=== PATIENT | female | born 1955 | race Caucasian/White ===

== ENCOUNTER 2017-11-14 06:36 | Inpatient (IN) ==
--- NOTE | 2017-11-13 22:29 | Discharge Summary ---
<CateMini E - Last Filed: 11/14/17 08:30> Date of Encounter: 11/14/17 - Discharge Diagnosis (1) Arthritis of right knee Priority: Primary Status: Chronic (2) HTN (hypertension) Priority: Secondary Status: Chronic Qualifiers: Hypertension type: unspecified Qualified Code(s): I10 - Essential (primary ) hypertension (3) Obesity Priority: Secondary Status: Chronic Qualifiers: Obesity type: unspecified obesity type Obesity classification: unspecified obesity classification Serious obesity comorbidity presence: unspecified whether serious comorbidity present Qualified Code(s): E66.9 - Obesity, unspecified (4) Neuropathy Priority: Secondary Status: Chronic (5) Muscle spasm Priority: Secondary Status: Chronic (6) Status post total right knee replacement Priority: Primary Status: Acute - Hospital Course Hospital course: Ms. Gonzáles is a 61 year old female - Time Spent with Patient Total time spent providing and/or coordinating discharge services: - Discharge Medications Home Medications: Aspirin Enteric Coated [Aspirin EC] 325 mg PO BID 10 Days #20 tablet. [Rx] Cyclobenzaprine [Flexeril] 5 mg PO BID PRN 11/14/17 [History] Gabapentin [Neurontin] 300 mg PO TID 11/14/17 [History] Lisinopril [Zestril] 10 mg PO DAILY 11/14/17 [History] Meloxicam 15 mg PO DAILY 11/14/17 [History] Oxycodone HCl 5 mg PO Q6H PRN 7 Days #28 tablet 11/14/17 [Rx] Vit A/Vit C/Vit E/Zinc/Copper [Preservision Areds Tablet] 1 tab PO DAILY [History] Allergies/Adverse Reactions: 3 Allergy/AdvReac Type Severity Reaction Status Date / Time aspirin Allergy Vomiting Verified 11/14/17 07:10 codeine Allergy Irritable Verified 11/14/17 07:10 Primary care physician: Agustin Partida MD - Patient Status Disposition: Home Health Service Condition: Good - Discharge Instructions Follow Up With: Agustin Partida MD [Primary Care Provider] - <Earle Pickens - Last Filed: 11/15/17 06:39> Orders not resulted at time of discharge: Pending orders 11/14/17 01:00 XR knee RT limited 1-2V [XR] Routine Hemoglobin and Hematocrit [HEME] Routine Date of Encounter: 11/15/17 Time of Encounter: 06:38 - Discharge Diagnosis (1) Obesity (BMI 35.0-39.9 without comorbidity) Priority: Secondary Status: Chronic (2) Arthritis of right knee Priority: Primary Status: Chronic (3) HTN (hypertension) Priority: Secondary Status: Chronic Qualifiers: Hypertension type: unspecified Qualified Code(s): I10 - Essential (primary ) hypertension (4) Neuropathy Priority: Secondary Status: Chronic (5) Status post total right knee replacement Priority: Primary Status: Acute - Hospital Course Hospital course: Ms. Gonzáles is a 61 year old female Status post right total knee replacement The patient had an uneventful postoperative course. They received antibiotics and physical therapy and were discharged in stable condition. There will follow -up in the office in 2 weeks. - Time Spent with Patient Total time spent providing and/or coordinating discharge services: Primary care physician: Agustin Partida MD - Patient Status Functional capacity at discharge: uses cane/walker Overall status at discharge: patient is progressing back to baseline
--- NOTE | 2017-11-14 06:47 | History & Physical Report ---
Date of Encounter: 11/14/17 Time of Encounter: 06:46 24 Hour HP Update - Instructions Instructions: If the History and Physical is less than 30 days old and was completed prior to A.M. admission and or procedure and has NOT been updated on calendar day of procedure please complete this update prior to performing procedure. - Update Patient reports changes in Medical Condition: No Changes in examination, assessment, or condition: No Changes in Medication: No Preop tests/diagnostics Reviewed: Yes Surgery Remains Indicated: Yes Consent for Planned Operative Procedure(s) Verified: Yes - Pre-Operative Checklist Preoperative Checklist Indicated: No Prophylactic Antibiotic Ordered: Yes Is VTE Prophylaxis Indicated?: Yes
[2017-11-14] MEDS ORDERED: *HR* FentaNYL (PF) 100 MCG/2 ML VIAL ONE ×2 (06:59→09:17)
[2017-11-14] MEDS ORDERED: Ondansetron 4 MG/2 ML VIAL ONE (06:59)
[2017-11-14] MEDS ORDERED: Lidocaine -MPF 2% 2 ML VIAL ONE (06:59)
[2017-11-14] MEDS ORDERED: *HR* Midazolam HCl 2 MG/2 ML VIAL ONE (06:59)
[2017-11-14] MEDS ORDERED: Dexamethasone 4 MG/ML VIAL ONE (06:59)
[2017-11-14] MEDS ORDERED: *HR* Propofol 200 MG/20 ML VIAL IVP ONE (06:59)
[2017-11-14] MEDS ORDERED: Ethanol\\Acetic Acid\\Na Ace\\Ben 1,000 ML IRRIG.SOLN IR ONE (07:13)
--- NOTE | 2017-11-14 07:24 | Anesthesia Evaluation PreOp ---
Date of Encounter: 11/14/17 Time of Encounter: 07:21 - Past History Planned Operation: Right Total Knee Arthroplasty Cardiac History: HTN Pulmonary History: Denies Any Significant HX SANITATION ENGINEER History: Denies Any Significant HX Other Medical History: Denies Any Significant HX Anesthesia History: No Prior Anesthetic Complications, Past Anesthesia Alcohol Use: none Drug use: none Medications and Allergies Cyclobenzaprine [Flexeril] 5 mg PO BID PRN 11/14/17 [History] Gabapentin [Neurontin] 300 mg PO TID 11/14/17 [History] Lisinopril [Zestril] 10 mg PO DAILY 11/14/17 [History] Meloxicam [Meloxicam] 15 mg PO DAILY 11/14/17 [History] Vit A/Vit C/Vit E/Zinc/Copper [Preservision Areds Tablet] 1 tab PO DAILY [History] 3 Allergy/AdvReac Type Severity Reaction Status Date / Time aspirin Allergy Vomiting Verified 11/14/17 07:10 codeine Allergy Irritable Verified 11/14/17 07:10 - Meds/Allergy Pre-op Review Medications Reviewed: Yes Allergies Reviewed: Yes Beta Blockers on Current Med List: No Anesthesia Results - Labs Laboratory Tests 11/10/17 11/10/17 11/10/17 14:41 14:41 14:41 WBC 7.5 Hgb 12.8 Hct 40.3 Plt Count 298 PT 10.8 INR 1.0 APTT 29.6 Sodium 140 Potassium 4.2 BUN 17 Creatinine 0.77 Anesthesia Exam O2 Sat Height 1.55 m Height 1.55 m Weight 88.904 kg Weight 88.904 kg O2 Sat by Pulse Oximetry 96 Vital Signs Temp Pulse Resp BP Pulse Ox 98.0 F 91 18 108/67 96 11/14/17 06:57 11/14/17 06:57 11/14/17 06:57 11/14/17 06:57 11/14/17 06:57 Height: 5'1'' Weight: 196 lbs NPO (# of Hours): 8 Pain Scale: 3 (right knee) Pain Scale Used: Numeric (1 - 10) - HEENT Pupil (Motor): EOMI Mallampati: II Teeth: Edentulous Denture Type: Upper: Complete, Lower: Complete Oral Opening: Greater than 3 - SANITATION ENGINEER LOC: Oriented SANITATION ENGINEER Motor: Normal RUE, Normal LUE, Normal RLE, Normal LLE, Normal Face SANITATION ENGINEER Sensory: Normal: RUE, LUE, RLE, LLE, Face - Cardiac Rhythm: Regular Murmur: None - Pulmonary Breath Sounds: bilateral Clear Respiratory Effort: Symmetrical Anesthesia Assess/Plan ASA Score: 2 Modified Reji Scale for Level of Consciousness: Cooperative, oriented, and tranquil Anesthetic Plan: General, Regional Monitoring Plan: Standard Monitors Recovery Plan: PACU
[2017-11-14] MEDS ORDERED: Propofol 500 MG/50 ML INFUS..BTL ONE (07:26)
[2017-11-14] MEDS ORDERED: Bupivacaine/Clonidine Syringe 1 EACH SYRINGE ONE ×2 (07:31→08:28)
[2017-11-14] MEDS ORDERED: CeFAZolin Syr 2,000MG/20 ML 2,000 MG/20 ML SYRINGE IVPB ONE (07:53)
[2017-11-14] MEDS ORDERED: Ringers Solution, Lactated 1,000 ML IVC SCH ×2 (08:00→08:45)
[2017-11-14] MEDS ORDERED: *HR* OxyCODONE Immed Rel 5 MG TABLET PO PRN ×2 (08:37→11:37)
[2017-11-14] MEDS ORDERED: *HR* Meperidine 25 MG/ML SYRINGE IVP PRN (08:37)
[2017-11-14] MEDS ORDERED: *HR* HYDROmorphone 2 MG TABLET PO PRN (08:37)
[2017-11-14] MEDS ORDERED: Naloxone 0.4 MG/ML INJ IVP PRN ×2 (08:37→11:37)
[2017-11-14] MEDS ORDERED: *HR* Promethazine 25 MG/ML VIAL IVP PRN (08:37)
[2017-11-14] MEDS ORDERED: Ondansetron 4 MG/2 ML VIAL IVP ONE (08:37)
[2017-11-14] MEDS ORDERED: Albuterol 2.5 MG/3 ML NEBULIZER IH ONE (08:37)
--- NOTE | 2017-11-14 08:37 | Anesthesia Procedures ---
Date of Encounter: 11/14/17 Time of Encounter: 08:35 Procedures: Anesthesia - Nerve Block Procedure Date: 11/14/17 Time: 08:35 Surgical Procedure: right tka Checklist: Correct Patient Identifier, Correct procedure, History checked Correct side: Right Blood Thinner: No Monitor Applied: EKG, BP, Pulse Oximetry Supplemental Oxygen via Nasal Cannula (L/min): 2 Sedation: Versed (mg): 2 Sedation: Fentanyl (mcg): 100 Indication: Post Op Analgesia (request per dr howard for post op pain control) Pre-op Neuro Deficits: No Block Type: Other (adductor canal & ipack) Catheter placed: No Sterile Technique: Yes Ultrasound used: Yes Anatomy identified: Yes Visual spread of Local: Yes Neuro Stimulation: No Blood on Needle Aspiration: No Smooth Injection of Local: Yes Pain with Injection of Local: No Prep: Chlorhexadine Needle: 22 x 50 mm Stimuplex (add canal), 21 x 100 mm Stimuplex (ipack) Local: 0.25% Bupivicaine w/Clonidine 20 mcg/cc Volume (cc): 60 Number of Attempts: 1 Complications: None/effective block Vitals: Vital Signs/O2 Sat/Glucose, Most Current Temp Pulse Resp BP Pulse Ox 11/14/17 08:17 85 128/75 100 11/14/17 07:47 98.0 F 91 18 108/67 96 11/14/17 06:57 98.0 F 91 18 108/67 96 Comments: pt tolerated procedure well. no complications. vss.
[2017-11-14] MEDS ORDERED: *HR* PHENYLEPHRINE 1,000 MCG/10 ML SYRINGE IVP ONE (09:06)
--- NOTE | 2017-11-14 10:00 | Orthopedic Operative Note ---
Date of procedure: 11/14/17 Pre-op diagnosis: Right knee arthritis Post-op diagnosis: same Procedure: Procedure: Right robotic-assisted Total knee replacement Estimated blood loss: 200 cc Hardware: Metal and polyethylene replacement. [place] Femur: 2 Tibia: 3 TS insert: 9 Patella: 36 Exam Under anesthesia: 14 degree flexion contracture 9 degrees varus as calculated by the robot full flexion and no instability Procedural Notes: Grade 4 arthritic changes all 3 compartments. Operative procedure: The patient was brought to the operating room and placed on the operating room table. After general anesthesia was administered the operative knee was examined. Findings were noted in the exam under anesthesia. The operative extremity was prepped and draped in sterile surgical fashion. The patient received IV antibiotics prior to skin incision. A standard midline incision was made centered over the patella. The incision was made through the skin and subcutaneous tissue. A medial parapatellar tendon approach was performed. Care was taken to preserve tissue along the medial aspect of the patella. And to protect the patella tendon. The deep MCL was released off the medial tibia. The infra patella fat pad was excised. The patella was everted and cut was made at the level of the insertion of the quadriceps and patella tendon. The patella was sized the guide was seated and the lug holes are drilled. Knee was brought into flexion. Patient noted to have grade 4 arthritic changes all 3 compartments. Steinmann pins were placed in the tibia and the femur for the tibial and femoral arrays respectively. Checkpoints were also placed in the tibia and the femur for calculation purposes. The knee including the femur and the tibial registered. Osteophytes, ACL and PCL were excised at this point. Extension and flexion were assessed with a valgus stress components were adjusted on the computer to balance the knee. Femoral cuts were made first with robotic assistance, these included the anterior cut posterior cuts chamfer cuts. Tibial cut was then performed with robotic assistance as well. Bone fragments were removed, as well as the medial and lateral meniscus. The size 2 femoral guide was seated box cut was made lug holes are drilled. The size 3 tibial tray was seated and prepared with the fin cutter. Trial reduction with the 9 TS Veronica revealed extension of 0 degree and 60 degrees varus full flexion. No varus valgus instability. Trial reduction revealed excellent patella tracking. All trial components were removed all bony surfaces were irrigated. The Tibia was seated followed by the femur, The Veronica size 9 was seated and secured patella. Patient had similar findings for motion and stability. The knee was closed by the PA. The knee was then irrigated out with 2 L of pulse irrigation. The extensor mechanism was closed with #2 FiberWire suture and #2 PDS suture. The subcutaneous tissue was then irrigated and closed deep with #1 PDS suture superficially with 0 PDS suture and skin was closed with zip tie The patient was then placed in a sterile dressing and a postoperative brace extubated and transferred to recovery room in stable condition. Anesthesia: GETA Surgeon: Earle Pickens Was there an assistant head cashier present: Yes Supervisor Ticket Sales: Mini Esposito Estimated blood loss (cc): 200 Condition: stable Disposition: PACU
[2017-11-14] MEDS: MORPHINE SUL Oral CONC 10 MG/0.5 ML ORAL.SYG SL PRN ×2 (10:57→11:12)
[2017-11-14] MEDS ORDERED: Ketorolac 30 MG/ML VIAL IVP ONE (11:02)
[2017-11-14] MEDS ORDERED: Acetaminophen IV 1,000 MG/100 ML INFUS..BTL IVPB ONE (11:03)
[2017-11-14] MEDS ORDERED: Acetaminophen IV 1,000 MG/100 ML INFUS..BTL ONE (11:06)
[2017-11-14 11:25] LABS: Hematocrit 42.7 % (35.3-44.9); Hemoglobin 13.8 g/dL (11.5-15.4)
--- NOTE | 2017-11-14 11:26 | Anesthesia Evaluation Post Op ---
Date of Encounter: 11/14/17 Time of Encounter: 11:25 - Vital Signs Vital Signs: Vital Signs/O2 Sat, Most Current Temp Pulse Resp BP Pulse Ox 98.4 F 87 14 154/88 95 11/14/17 11:07 11/14/17 11:17 11/14/17 11:17 11/14/17 11:17 11/14/17 11:17 - Lungs Lungs: Clear Ascult./Percussion - Airway Airway: Non-obstructed - Cardiovascular Regular Rate - Mental Status Mental Status: Alert & Oriented, Answers Appropriately - Pain Pain Scale: 5 Pain Scale used: Numeric (1 - 10) - Nausea Vomiting Nausea Vomiting: Not Present - Hydration Hydration: Ice chips, Has not voided - Discharge PostOp Status: Transfer Patient to floor
[2017-11-14] MEDS ORDERED: Temazepam 15 MG CAPSULE PO PRN (11:37)
[2017-11-14] MEDS ORDERED: traMADol 50 MG TABLET PO PRN (11:37)
[2017-11-14] MEDS ORDERED: MOM Conc 10 ML UD.LIQ PO PRN (11:37)
[2017-11-14] MEDS ORDERED: Sennosides 8.6 MG TABLET PO PRN (11:37)
[2017-11-14] MEDS ORDERED: Ondansetron 4 MG/2 ML VIAL IVP PRN (11:37)
[2017-11-14] MEDS: Gabapentin 300 MG CAPSULE PO SCH ×2 (15:50→21:03)
--- NOTE | 2017-11-14 15:50 | Physician Discharge Referral ---
Home Health/Hosp Referral Info Transfer to: Home Health Attending Provider: Dr. Earle Pickens - Diagnosis (1) Status post total right knee replacement Priority: Primary Status: Acute (2) Arthritis of right knee Priority: Primary Status: Chronic (3) HTN (hypertension) Priority: Secondary Status: Chronic (4) Obesity Priority: Secondary Status: Chronic (5) Neuropathy Priority: Secondary Status: Chronic (6) Muscle spasm Priority: Secondary Status: Chronic - Respiratory Orders Smoking Cessation: Smoking cessation has been advised. For more information, call the [place] Tobacco Quit Line at 4-052-CVLD-NOW. - Dressing/Wound Care Site: right knee Type of Dressing/Treatments w/Frequency: Opsite placed. Keep dressing intact until first follow up appointment. If > 50% saturated, notify office, remove dressing and place appropriate dressing back in place. Leave Zipline intact. Opsite dressing is water resistant, not water- proof. OK to shower, but do not get dressing wet. - Diet/Nutrition Diet/Nutrition Orders: Regular - Activity Activity Orders: Up ad katia, Ambulate, Chair, Walker - Services Needed Following services are medically necessary services: Nursing, Home Health Aide, Physical Therapy, Occupational Therapy Home Care Orders: Total Knee replacement Precautions x 6 weeks Apply cold therapy wrap 3-6x/day for 20 minutes at a time. Encourage ambulation throughout the day and incentive spirometer 10x/hour. Elevate affected extremity above heart as tolerated. Brace: Wear knee immobilizer at night x 2 weeks. - Transfer Medications Home Medications: Aspirin Enteric Coated [Aspirin EC] 325 mg PO BID 10 Days #20 tablet. [Rx] Cyclobenzaprine [Flexeril] 5 mg PO BID PRN 11/14/17 [History] Gabapentin [Neurontin] 300 mg PO TID 11/14/17 [History] Lisinopril [Zestril] 10 mg PO DAILY 11/14/17 [History] Meloxicam 15 mg PO DAILY 11/14/17 [History] Oxycodone HCl 5 mg PO Q6H PRN 7 Days #28 tablet 11/14/17 [Rx] Vit A/Vit C/Vit E/Zinc/Copper [Preservision Areds Tablet] 1 tab PO DAILY [History] Allergies/Adverse Reactions: 3 Allergy/AdvReac Type Severity Reaction Status Date / Time aspirin Allergy Vomiting Verified 11/14/17 07:10 codeine Allergy Irritable Verified 11/14/17 07:10 Certification: Further, I certify that my clinical findings support that this patient is homebound (i.e. absences from home require considerable and taxing effort and are for medical reasons or bahai services or infrequently or short duration when for other reasons) because: Homebound Reason: Post-surgery restriction and or conditions limit ability to leave home Attestation: My signature below is to certify that this patient is under my care and that I, or nurse practitioner, or a physician city carrier assistant working with me, has a face-to- face encounter with this patient.
[2017-11-14] MEDS: ceFAZolin 2,000 MG in 0.9 % Sodium Chloride 100 ML IVPB SCH (17:19)
[2017-11-14] MEDS: *HR* Enoxaparin 30 MG/0.3 ML SYRINGE SQ SCH (17:20)
[2017-11-14] MEDS ORDERED: *HR* Enoxaparin 30 MG/0.3 ML SYRINGE SQ SCH (18:00)
[2017-11-14] MEDS: *HR* OxyCODONE/APAP 5/325 TABLET PO PRN (21:05)
[2017-11-15] MEDS: ceFAZolin 2,000 MG in 0.9 % Sodium Chloride 100 ML IVPB SCH (00:06)
[2017-11-15 01:41] LABS: BUN/Creatinine Ratio 21 (6-26); Blood Urea Nitrogen 16 mg/dL (8-23); Calcium 8.8 mg/dL (8.6-10.3); Carbon Dioxide 24 mEq/L (23-29); Chloride 107 mEq/L (98-107); Glucose 112 mg/dL (70-105); Osmolality,Calculated 286 (280-300); Potassium 4.6 mEq/L (3.5-5.1); Sodium 137 mEq/L (136-145); eGFR For African Americans > 60 (> 60); eGFR For Non-African Americans > 60 (> 60)
[2017-11-15 02:01] LABS: Hemoglobin 11.3 g/dL (11.5-15.4)
[2017-11-15] MEDS: *HR* Enoxaparin 30 MG/0.3 ML SYRINGE SQ SCH ×2 (05:20→18:27)
[2017-11-15] MEDS: *HR* OxyCODONE/APAP 5/325 TABLET PO PRN ×3 (05:37→20:12)
--- NOTE | 2017-11-15 06:39 | Orthopedics Progress Note ---
Date of Encounter: 11/15/17 Time of Encounter: 06:39 - Assessment and Plan (1) Obesity (BMI 35.0-39.9 without comorbidity) Current Visit: Yes Status: Chronic (2) Arthritis of right knee Current Visit: No Status: Chronic (3) HTN (hypertension) Current Visit: No Status: Chronic Qualifiers: Hypertension type: unspecified Qualified Code(s): I10 - Essential (primary ) hypertension (4) Neuropathy Current Visit: No Status: Chronic (5) Status post total right knee replacement Current Visit: No Status: Acute Subjective Interval history: Patient was seen this morning doing well without complaints. Afebrile vital signs stable. Operative extremity: Neurovascularly intact Dressing clean dry and intact Calves nontender Assessment and plan: Continue with postoperative care Hematocrit 36 discharged today Objective Vital signs: Vital Signs Temp Pulse Resp BP Pulse Ox 11/15/17 05:28 84 100/63 11/15/17 04:38 97.5 F L 77 17 89/59 98 11/15/17 00:26 97.5 F L 81 17 98/63 98 11/14/17 19:05 97.7 F 81 17 95/62 98 11/14/17 13:35 97.7 F 91 16 99/62 95 11/14/17 12:40 97.9 F 78 16 95/67 96 11/14/17 12:10 97.7 F 87 18 127/84 95 11/14/17 11:40 97.6 F 82 18 139/82 96 11/14/17 11:27 98.6 F 90 14 150/83 96 11/14/17 11:17 87 14 154/88 95 11/14/17 11:07 98.4 F 93 19 142/94 96 11/14/17 10:57 95 16 155/87 98 11/14/17 10:47 85 16 149/83 97 11/14/17 10:37 97.6 F 102 16 141/85 100 11/14/17 08:30 84 109/69 100 11/14/17 08:17 85 128/75 100 11/14/17 07:47 98.0 F 91 18 108/67 96 11/14/17 06:57 98.0 F 91 18 108/67 96 Intake and Output 11/14/17 11/14/17 11/15/17 15:59 23:59 07:59 Intake Total 100 / 100 150 / 150 Output Total 200 / 200 300 / 300 920 / 920 Balance -200 / -200 -200 / -200 -770 / -770 Intake: IV Fluids 100 / 100 Ancef 2,000 MG In 0.9 % Sodium 100 / 100 Chloride 100 ML @ 200 mls/hr IVPB Q8HR BG Rx#:[id number] Oral 150 / 150 Output: Urine 300 / 300 920 / 920 Estimated Blood Loss 200 / 200 - Labs CBC & BMP: 11/15/17 00:50 11/15/17 00:50 Labs: Abnormal lab results Hgb 11.3 g/dL (11.5-15.4) L D 11/15/17 00:50 Glucose 112 mg/dL (70-105) H 11/15/17 00:50 - VTE Documentation of Mechanical Device: Venous foot pump, device Consult Discharge Plan - Plan Referrals: Agustin Partida MD [Primary Care Provider] -
[2017-11-15] MEDS: Gabapentin 300 MG CAPSULE PO SCH ×3 (08:39→20:12)
--- NOTE | 2017-11-15 12:22 | Event Note ---
Date of Encounter: 11/15/17 Time of Encounter: 11:20 PCR- POD#1 R TKR robotic 11/14/17 Celio PCR - Patient seen at bedside. Labwork and medications reviewed. Pain control: Adequate Participating in PT. All questions and concerns addressed. Educated on use of incentive spirometer, ambulation, and hydration. Patient educated on post-operative restrictions and care. Addressed: see above. D/C plan: Home with home health tomorrow.
[2017-11-16 00:58] LABS: Hematocrit 32.8 % (35.3-44.9); Hemoglobin 10.6 g/dL (11.5-15.4)
[2017-11-16 01:15] LABS: BUN/Creatinine Ratio 20 (6-26); Blood Urea Nitrogen 14 mg/dL (8-23); Calcium 8.7 mg/dL (8.6-10.3); Carbon Dioxide 24 mEq/L (23-29); Chloride 106 mEq/L (98-107); Glucose 118 mg/dL (70-105); Osmolality,Calculated 290 (280-300); Potassium 4.4 mEq/L (3.5-5.1); Sodium 139 mEq/L (136-145); eGFR For African Americans > 60 (> 60); eGFR For Non-African Americans > 60 (> 60)
[2017-11-16] MEDS ORDERED: Acetaminophen 325 MG TABLET PO PRN (03:50)
[2017-11-16] MEDS: *HR* OxyCODONE/APAP 5/325 TABLET PO PRN ×3 (03:59→17:56)
[2017-11-16] MEDS: *HR* Enoxaparin 30 MG/0.3 ML SYRINGE SQ SCH ×2 (06:08→17:56)
--- NOTE | 2017-11-16 06:40 | Orthopedics Progress Note ---
Date of Encounter: 11/16/17 Time of Encounter: 06:40 - Assessment and Plan (1) Obesity (BMI 35.0-39.9 without comorbidity) Current Visit: Yes Status: Chronic (2) Arthritis of right knee Current Visit: No Status: Chronic (3) HTN (hypertension) Current Visit: No Status: Chronic Qualifiers: Hypertension type: unspecified Qualified Code(s): I10 - Essential (primary ) hypertension (4) Neuropathy Current Visit: No Status: Chronic (5) Status post total right knee replacement Current Visit: No Status: Acute Subjective Interval history: Patient was seen this morning doing well without complaints. Afebrile vital signs stable. Operative extremity: Neurovascularly intact Dressing clean dry and intact Calves nontender Assessment and plan: Continue with postoperative care Hematocrit 32 patient wanting ECF will discharged today Objective Vital signs: Vital Signs Temp Pulse Resp BP Pulse Ox 11/16/17 06:11 98.9 F 100 16 128/76 96 11/16/17 02:42 98.9 F 100 18 147/68 95 11/15/17 23:56 98.9 F 97 16 114/68 94 11/15/17 18:53 99.8 F H 109 18 153/75 98 11/15/17 15:30 99.1 F 99 16 151/76 96 11/15/17 10:54 98.1 F 89 16 108/69 94 11/15/17 06:42 98.5 F 76 16 93/60 95 Intake and Output 11/15/17 11/15/17 11/16/17 15:59 23:59 07:59 Intake Total 480 / 480 440 / 440 0 / 0 Output Total 250 / 250 0 / 0 Balance 480 / 480 190 / 190 0 / 0 Intake: Oral 480 / 480 440 / 440 0 / 0 Output: Urine 250 / 250 0 / 0 Other: Meal Lunch Dinner Percent of Meal Consumed 30% 25% # Voids 1 1 - Labs CBC & BMP: 11/16/17 00:37 11/16/17 00:37 Labs: Abnormal lab results Hgb 10.6 g/dL (11.5-15.4) L 11/16/17 00:37 Hct 32.8 % (35.3-44.9) L 11/16/17 00:37 Glucose 118 mg/dL (70-105) H 11/16/17 00:37 - VTE Documentation of Mechanical Device: Venous foot pump, device Consult Discharge Plan - Plan Referrals: Agustin Partida MD [Primary Care Provider] -
[2017-11-16] MEDS: Gabapentin 300 MG CAPSULE PO SCH ×3 (08:25→20:50)
[2017-11-16] MEDS: Ringers Solution, Lactated 1,000 ML IVC SCH ×2 (08:26→17:56)
[2017-11-17] MEDS: *HR* Enoxaparin 30 MG/0.3 ML SYRINGE SQ SCH ×2 (05:51→16:49)
--- NOTE | 2017-11-17 06:21 | Orthopedics Progress Note ---
Date of Encounter: 11/17/17 Time of Encounter: 06:21 - Assessment and Plan (1) Obesity (BMI 35.0-39.9 without comorbidity) Current Visit: Yes Status: Chronic (2) Arthritis of right knee Current Visit: No Status: Chronic (3) HTN (hypertension) Current Visit: No Status: Chronic Qualifiers: Hypertension type: unspecified Qualified Code(s): I10 - Essential (primary ) hypertension (4) Neuropathy Current Visit: No Status: Chronic (5) Status post total right knee replacement Current Visit: No Status: Acute Subjective Interval history: Patient was seen this morning doing well without complaints. Afebrile vital signs stable. Operative extremity: Neurovascularly intact Dressing clean dry and intact Calves nontender Assessment and plan: Continue with postoperative care Discharge today Objective Vital signs: Vital Signs Temp Pulse Resp BP Pulse Ox 11/17/17 03:37 98.7 F 92 14 120/75 94 11/16/17 23:37 98.9 F 98 14 110/71 96 11/16/17 18:22 100.7 F H 117 14 138/79 97 11/16/17 16:06 98.2 F 106 18 128/78 99 11/16/17 11:29 98.6 F 102 18 119/72 97 11/16/17 08:11 138/80 Intake and Output 11/16/17 11/16/17 11/17/17 15:59 23:59 07:59 Intake Total 360 / 360 490 / 490 Output Total 550 / 550 Balance -190 / -190 490 / 490 Intake: Oral 360 / 360 490 / 490 Output: Urine 550 / 550 Other: Meal Lunch Dinner Percent of Meal Consumed 50% 80% # Voids 1 - Labs CBC & BMP: 11/16/17 00:37 11/16/17 00:37 Labs: Abnormal lab results Hgb 10.6 g/dL (11.5-15.4) L 11/16/17 00:37 Hct 32.8 % (35.3-44.9) L 11/16/17 00:37 Glucose 118 mg/dL (70-105) H 11/16/17 00:37 - VTE Documentation of Mechanical Device: Intermittent pneumatic compression device Consult Discharge Plan - Plan Referrals: Agustin Partida MD [Primary Care Provider] -
--- NOTE | 2017-11-17 08:42 | Event Note ---
Date of Encounter: 11/16/17 Time of Encounter: 11:30 PCR- POD#2 R TKR robotic 11/14/17 Celio PCR - Patient seen at bedside. Labwork and medications reviewed. Pain control: Adequate Participating in PT. All questions and concerns addressed. Educated on use of incentive spirometer, ambulation, and hydration. Patient educated on post-operative restrictions and care. Addressed: see above. D/C plan: Patient refusing HH at this time stating she needs to go to rehab because she does not feel safe going home. Will work with certified social workers in health care to see if placement possible.
--- NOTE | 2017-11-17 08:43 | Event Note ---
Date of Encounter: 11/17/17 Time of Encounter: 08:10 PCR- POD#3 R TKR robotic 11/14/17 Celio PCR - Patient seen at bedside. Labwork and medications reviewed. Pain control: Adequate Participating in PT. All questions and concerns addressed. Educated on use of incentive spirometer, ambulation, and hydration. Patient educated on post-operative restrictions and care. Addressed: Patient c/o low back pain - states has a low back problem and it is "flared up". Offered patient pillow for support, patient accepted. D/C plan: Patient refusing HH at this time stating she needs to go to rehab because she does not feel safe going home. Will work with high school social studies teacher to see if placement possible. Awaiting authorization.
--- NOTE | 2017-11-17 08:44 | Physician Discharge Referral ---
ExtendedCare Referral Info Transfer To: [facility] Provider in Charge: Dr Earle Pickens - Diagnosis (1) Status post total right knee replacement Priority: Primary Status: Acute (2) Arthritis of right knee Priority: Primary Status: Chronic (3) HTN (hypertension) Priority: Secondary Status: Chronic (4) Obesity Priority: Secondary Status: Chronic (5) Neuropathy Priority: Secondary Status: Chronic (6) Muscle spasm Priority: Secondary Status: Chronic Expected Duration of Placement: less than 30 days Prognosis: Good Aware of Diagnosis: Patient Aware of Prognosis: Patient - Transfer Medications Home Medications: Aspirin Enteric Coated [Aspirin EC] 325 mg PO BID 10 Days #20 tablet. [Rx] Cyclobenzaprine [Flexeril] 5 mg PO BID PRN 11/14/17 [History] Gabapentin [Neurontin] 300 mg PO TID 11/14/17 [History] Lisinopril [Zestril] 10 mg PO DAILY 11/14/17 [History] Meloxicam 15 mg PO DAILY 11/14/17 [History] Oxycodone HCl 5 mg PO Q6H PRN 7 Days #28 tablet 11/14/17 [Rx] Vit A/Vit C/Vit E/Zinc/Copper [Preservision Areds Tablet] 1 tab PO DAILY [History] Allergies/Adverse Reactions: 3 Allergy/AdvReac Type Severity Reaction Status Date / Time aspirin Allergy Vomiting Verified 11/14/17 07:10 codeine Allergy Irritable Verified 11/14/17 07:10 - Respiratory Orders Smoking Cessation: Smoking cessation has been advised. For more information, call the [place] Tobacco Quit Line at 5-148-ZUUH-NOW. - Ancillary Orders May use pressure relief devices daily prn, May go on CHRISTOPHER w/family/respon constitution party w /meds at nurse discretion PRN, May consult with Dentist, It Network Architect, Voucher Clerk PRN - Mobility Orders Chair, Ambulate - Rehabiliation Orders Rehab Potential: Good Rehab Orders: Evaluation for Physical Therapy, Evaluation for Occupational Therapy Other: Total Knee replacement Precautions x 6 weeks Apply cold therapy wrap 3-6x/day for 20 minutes at a time. Encourage ambulation throughout the day and incentive spirometer 10x/hour. Elevate affected extremity above heart as tolerated. Brace: Wear knee immobilizer at night x 2 weeks. - Treatments Skin tear care topically daily PRN per policy List/Other: Opsite placed. Keep dressing intact until first follow up appointment. If > 50% saturated, notify office, remove dressing and place appropriate dressing back in place. Leave Zipline intact. Opsite dressing is water resistant, not water- proof. OK to shower, but do not get dressing wet. - Diet Orders Regular CERTIFICATION: I certify that the transfer of the above named patient to an Extended Care Facility is necessary for the continuing treatment of the diagnosis listed. The above information is true and accurate reflection of patient's current condition. Confidential - Redisclosure prohibited without a patient's written consent.
[2017-11-17] MEDS: *HR* OxyCODONE/APAP 5/325 TABLET PO PRN ×2 (09:21→14:50)
[2017-11-17] MEDS: Nystatin SUSP 5 ML UD.LIQ PO SCH ×4 (09:21→20:26)
[2017-11-17] MEDS: Gabapentin 300 MG CAPSULE PO SCH ×3 (09:21→20:26)
[2017-11-17] MEDS: Ringers Solution, Lactated 1,000 ML IVC SCH ×2 (16:50→20:22)
[2017-11-18] MEDS: *HR* OxyCODONE/APAP 5/325 TABLET PO PRN (03:38)
[2017-11-18] MEDS: *HR* Enoxaparin 30 MG/0.3 ML SYRINGE SQ SCH (05:56)
--- NOTE | 2017-11-18 06:44 | Orthopedics Progress Note ---
Date of Encounter: 11/18/17 Time of Encounter: 06:44 - Assessment and Plan (1) Obesity (BMI 35.0-39.9 without comorbidity) Current Visit: Yes Status: Chronic (2) Arthritis of right knee Current Visit: No Status: Chronic (3) HTN (hypertension) Current Visit: No Status: Chronic Qualifiers: Hypertension type: unspecified Qualified Code(s): I10 - Essential (primary ) hypertension (4) Neuropathy Current Visit: No Status: Chronic (5) Status post total right knee replacement Current Visit: No Status: Acute Subjective Interval history: Patient was seen this morning doing well without complaints. Afebrile vital signs stable. Operative extremity: Neurovascularly intact Dressing clean dry and intact Calves nontender Assessment and plan: Continue with postoperative care Discharge today Objective Vital signs: Vital Signs Temp Pulse Resp BP Pulse Ox 11/18/17 00:10 99.6 F 104 16 128/74 95 11/17/17 19:02 99.0 F 110 16 117/72 93 11/17/17 15:36 98.7 F 75 17 117/70 98 11/17/17 11:18 99.1 F 105 18 100/57 97 11/17/17 08:18 98.6 F 126 17 142/80 97 Intake and Output 11/17/17 11/17/17 11/18/17 15:59 23:59 07:59 Intake Total 270 / 270 200 / 200 200 / 200 Output Total 200 / 200 300 / 300 Balance 70 / 70 200 / 200 -100 / -100 Intake: Oral 270 / 270 200 / 200 200 / 200 Output: Urine 200 / 200 300 / 300 Other: Meal Lunch Percent of Meal Consumed 20% # Voids 1 1 1 - Labs CBC & BMP: 11/16/17 00:37 11/16/17 00:37 Labs: Abnormal lab results Hgb 10.6 g/dL (11.5-15.4) L 11/16/17 00:37 Hct 32.8 % (35.3-44.9) L 11/16/17 00:37 Glucose 118 mg/dL (70-105) H 11/16/17 00:37 - VTE Documentation of Mechanical Device: Venous foot pump, device Consult Discharge Plan - Plan Referrals: Agustin Partida MD [Primary Care Provider] -
[2017-11-18] MEDS: Ringers Solution, Lactated 1,000 ML IVC SCH (09:19)
[2017-11-18] MEDS: Gabapentin 300 MG CAPSULE PO SCH (09:21)
[2017-11-18] MEDS: Nystatin SUSP 5 ML UD.LIQ PO SCH (09:21)
[2017-11-18 12:00] VITALS: BP 125/77
--- NOTE | 2017-11-18 12:18 | Event Note ---
Date of Encounter: 11/18/17 Time of Encounter: 08:30 PCR- POD#4 R TKR robotic 11/14/17 Celio PCR - Patient seen at bedside. Labwork and medications reviewed. Pain control: Adequate Participating in PT. All questions and concerns addressed. Educated on use of incentive spirometer, ambulation, and hydration. Patient educated on post-operative restrictions and care. Addressed: Patient c/o low back pain - states has a low back problem and it is "flared up". Offered patient pillow for support, patient accepted. D/C plan: Patient refused HH. Authorization obtained patient to go to rehabilitation today.
== END 2017-11-18 13:04 | disposition home health service (06) | DRG 302 ==
LOC: SAMDAY 06:36 → 3NENU 11:30
PROVIDERS: ADMIT Orthopaedic Surgery; ATTEND Orthopaedic Surgery